=== PATIENT | male | born 1965 | race Caucasian/White ===

== ENCOUNTER 2020-06-19 06:12 | Emergency (ER) | payer OTHER ==
[~2020-06-19] VITALS: Ht 177.8 cm; Wt 108.9 kg
[2020-06-19 06:20] VITALS: BP 139/85
[2020-06-19] MEDS ORDERED: ONDANSETRON PF 4 MG/2 ML VIAL. IVP ONE (06:30)
[2020-06-19] MEDS ORDERED: KETOROLAC 30 MG/ML VIAL. IVP ONE (06:30)
--- NOTE | 2020-06-19 06:54 | PHYS DOC ---
Past History Past Medical History: Kidney Stones Past Surgical History: Other Additional Past Surgical Histo: CABG 1973 Alcohol Use: None General Adult EDM: Chief Complaint: FLANK PAIN HPI: HPI: Patient is a 55-year-old male with right-sided flank pain that woke from sleep about 2 hours prior to arrival. Patient states he has had multiple kidney stones in the past that presented the same way. Patient states that the pain is a 3 of 10 and alternates between his right lower quadrant and right flank. Has had some nausea without vomiting. Has not noted any changes in urine color or smell, and denies dysuria. States he otherwise has been well. Review of Systems: Review of Systems: All other systems within normal limits except for as noted in the HPI Current Medications: Current Meds: Current Medications Medications (Trade) Dose Ordered Sig/Ferdinand Start Time Stop Time Status Last Admin Dose Admin Ketorolac Tromethamine (Toradol 30mg Vial) 30 mg 1X ONCE 06/19/20 06:30 06/19/20 06:42 DC 06/19/20 06:39 30 MG Ondansetron HCl (Zofran) 4 mg 1X ONCE 06/19/20 06:30 06/19/20 06:42 DC 06/19/20 06:39 4 MG Allergies: Allergies: Allergies Coded Allergies Type Severity Reaction Last Updated Verified No Known Drug Allergies 06/19/20 No Physical Exam: PE: Constitutional: Well developed, well nourished, no acute distress, non-toxic appearance. [] HENT: Normocephalic, atraumatic, bilateral external ears normal, nose normal. [] Eyes: PERRLA, conjunctiva normal, no discharge. [] Neck: No rigidity, supple, no stridor. [] Cardiovascular: Regular rate and rhythm, brisk cap refill [] Lungs & Thorax: Non labored symmetric respirations, no tachypnea or respiratory distress [] Abdomen: Soft, nondistended. Skin: Warm, dry, no erythema, no rash. [] Back: Unremarkable. Right CVA tenderness Extremities: No deformities, range of motion grossly intact, no lower extremity edema [] Neurologic: Alert and oriented X 3, no focal deficits noted. [] Psychologic: Affect normal, judgement normal, mood normal. [] EKG: EKG: [] Radiology/Procedures: Radiology/Procedures: CT ABDOMEN+PELVIS WO Clinical Indication: Reason: stone study, right flank pain / Spl. Instructions: / History: Comparison: None. Technique: Helical CT imaging of the abdomen and pelvis is performed without IV or oral contrast. Findings: There is mild atelectasis in the posterior right lower lobe. The cardiac size is normal. There is mild fatty infiltration of the liver. There is cholelithiasis. The spleen, pancreas, adrenal glands, and abdominal aorta are normal. Small right renal cyst does not require follow-up. There are at least 3 nonobstructing right renal calculi. The largest measures 4 mm. There are at least 6 nonobstructing left renal calculi. The largest measures 4 mm. There is no left hydronephrosis. There is mild right hydroureteronephrosis secondary to a 3 mm calculus at the distal right ureter, image 146. The calculus is a few centimeters proximal to the ureterovesicular junction. There is no obvious abnormality of the stomach. There is no dilated small bowel. The appendix is normal. Mild colon diverticulosis. No colon wall thickening is identified. No abdominal adenopathy or free fluid. The urinary bladder is mostly decompressed. There is moderate wall thickening. The prostate size is normal. The seminal vesicles are prominent. There is no pelvic free fluid. No inguinal adenopathy. There is no acute bone abnormality. IMPRESSION: 1. Mild right obstructive uropathy secondary to a 3 mm distal ureteral calculus. 2. Moderate wall thickening of the urinary bladder. Urinary bladder is mostly decompressed. Cannot exclude cystitis. 3. Bilateral nonobstructing renal calculi. 4. Cholelithiasis. 5. Mild fatty infiltration of the liver. 6. Mild colon diverticulosis.[] Heart Score: Risk Factors: Risk Factors: DM, Current or recent (<one month) smoker, HTN, HLP, family history of CAD, obesity. Risk Scores: Score 0 - 3: 2.5% MACE over next 6 weeks - Discharge Home Score 4 - 6: 20.3% MACE over next 6 weeks - Admit for Clinical Observation Score 7 - 10: 72.7% MACE over next 6 weeks - Early Invasive Strategies Course & Med Decision Making: Course & Med Decision Making Pertinent Labs and Imaging studies reviewed. (See chart for details) [] Yulisa Disclaimer: Yulisa Disclaimer: This electronic medical record was generated, in whole or in part, using a voice recognition dictation system. Departure Departure: Impression: Primary Impression: Kidney stone on right side Disposition: 01 DC HOME SELF CARE/HOMELESS Condition: STABLE Referrals: NON,STAFF (PCP) Patient Instructions: Diet for Kidney Stones Scripts Tamsulosin Hcl (FLOMAX) 0.4 Mg Cap.er.24h 1 CAP PO QHS for kidney stone for 10 Days, #10 CAP 0 Refills Prov: FERNY SMITH MD 06/19/20 Tramadol Hcl (TRAMADOL HCL) 50 Mg Tablet 50 MG PO PRN Q6HRS PRN for PAIN for 3 Days, #10 TAB Prov: FERNY SMITH MD 06/19/20 Ondansetron (ONDANSETRON ODT) 4 Mg Tab.rapdis 1 TAB PO PRN Q6-8HRS PRN for NAUSEA for 3 Days, #10 TAB Prov: FERNY SMITH MD 06/19/20 FERNY SMITH MD Jun 19, 2020 06:54
--- NOTE | 2020-06-19 07:03 | RAD ---
PQRS Compliance Statement: One or more of the following individualized dose reduction techniques were utilized for this examinat ion: 1. Automated exposure control 2. Adjustment of the mA and/or kV according to patient size 3. Use of iterative reconstruction technique CT ABDOMEN+PELVIS WO Clinical Indication: Reason: stone study, right flank pain / Spl. Instructions: / History: Comparison: None. Technique: Helical CT imaging of the abdomen and pelvis is performed without IV or oral contrast. Findings: There is mild atelectasis in the posterior right lower lobe. The cardiac size is normal. There is mild fatty infiltration of the liver. There is cholelithiasis. The spleen, pancreas, adrenal glands, and abdominal aorta are normal. Small right renal cyst does not require follow-up. There are at least 3 nonobstructing right renal ca lculi. The largest measures 4 mm. There are at least 6 nonobstructing left renal calculi. The largest measures 4 mm. There is no left hydronephrosis. There is mild right hydroureteronephrosis secondary to a 3 mm calculus at the distal right ureter, image 146. The calculus is a few centimeters proximal to the ureterovesicular junction. There is no obvious abnormality of the stomach. There is no dilated small bowel. The appendix is norm al. Mild colon diverticulosis. No colon wall thickening is identified. No abdominal adenopathy or hermann e fluid. The urinary bladder is mostly decompressed. There is moderate wall thickening. The prostate size is n ormal. The seminal vesicles are prominent. There is no pelvic free fluid. No inguinal adenopathy. There is no acute bone abnormality. IMPRESSION: 1. Mild right obstructive uropathy secondary to a 3 mm distal ureteral calculus. 2. Moderate wall thickening of the urinary bladder. Urinary bladder is mostly decompressed. Cannot e xclude cystitis. 3. Bilateral nonobstructing renal calculi. 4. Cholelithiasis. 5. Mild fatty infiltration of the liver. 6. Mild colon diverticulosis. Electronically signed by: Jeff Watson MD (06/19/2020 7:00 AM) [facility]
[2020-06-19 07:22] LABS: BILIRUBIN,URINE NEG (NEG); CLARITY,URINE HAZY; COLOR,URINE AMBER; GLUCOSE,URINE NEG (NEG)
[2020-06-19 07:23] LABS: BACTERIA,URINE FEW /HPF (0-FEW); HYALINE CASTS, URINE OCC /HPF; NITRITE,URINE NEG (NEG); RBC,URINE >40 /HPF (0-2); SQUAMOUS EPITHELIAL CELL,UR FEW /LPF
[2020-06-19] MEDS ORDERED: TAMSULOSIN 0.4 MG CAP.ER.24H. PO ONE ×2 (07:35→07:45)
[2020-06-19] MEDS ORDERED: TAMS0.4C97 PO (07:38)
[2020-06-19] MEDS ORDERED: TRAM50TA PO (07:38)
[2020-06-19] MEDS ORDERED: ONDA4TAB12 PO (07:38)
== END 2020-06-19 07:43 | disposition home or self-care (01) ==
LOC: ER 06:12
DX: N13.2 Hydronephrosis with renal and ureteral calculous obstruction (principal); Z87.442 Personal history of urinary calculi
CPT/HCPCS: 74176; 81001; 96374; 96375; 99284; J1885; J2405